=== PATIENT | female | born 1990 | race Caucasian/White ===

== ENCOUNTER → 2020-04-19 10:09 | Outpatient (CLI) | payer OTHER, SELFPAY | PROVIDERS: PCP Internal Medicine; Referring Provider Internal Medicine Geriatric Medicine; Visit Provider Internal Medicine Geriatric Medicine | DX: Z11.59 Encounter for screening for other viral diseases (principal) | CPT/HCPCS: 87635; G2023; U0003 ==

== ENCOUNTER → 2020-10-26 13:43 | Outpatient (CLI) | payer OTHER, SELFPAY ==
[2016-10-24 10:03] VITALS: BMI 34.7
[2020-10-28 20:38] LABS: HPV Reflexed? NOT INDICATED
== END ==
PROVIDERS: PCP Internal Medicine; Visit Provider Obstetrics & Gynecology
DX: Z12.4 Encounter for screening for malignant neoplasm of cervix (principal)
CPT/HCPCS: 88175; G0145

== ENCOUNTER 2022-01-29 09:53 | Emergency (ER) | payer OTHER, SELFPAY ==
[2022-01-29 09:55] VITALS: BP 162/106; PULSE 87; RESP 17; TEMP 36.7; O2SAT 99; BMI 33.6
--- NOTE | 2022-01-29 10:01 | NURSING ---
NO OLD EKGS
[2022-01-29 10:11] VITALS: BP 159/99; PULSE 102; RESP 16
--- NOTE | 2022-01-29 10:19 | EDS_ITS ---
HPI History of Present Illness Chief Complaint: Chest Pain Informant: patient Narrative Narrative: 31-year-old female is brought to the emergency department the chief complaint of hypertension and chest discomfort. Patient states that since October when she had COVID she has had elevated blood pressure readings. She states that she has been monitoring them. She states that last night while at work she had systolic readings of 180 with diastolic around 100. She also noted some pressure in the chest. She states that when her blood pressures get elevated she gets the pressure. She made an appointment with her primary care provider this morning who recommended she come to emergency. In the office she had an EKG that showed sinus rhythm with a possible incomplete right bundle. Patient states no prescriptions were called in for her yet. She has no known renal problems. She is a non-smoker. She drinks about 2 cups of coffee a day. She reports a familial history of hypertension on both her paternal and maternal side. [facility] Medical History delivery delivered Cholecystectomy planned Home Medications amlodipine 2.5 mg PO DAILY #30 tab 01/29/22 [Rx Last Taken Unknown] Allergy/AdvReac Type Severity Reaction Status Date / Time vancomycin Allergy Itching Verified 01/29/22 09:54 Surgical History H/O hernia repair Social History (Updated 01/29/22 @ 10:[address] Erik Guerra DO) Smoking Status: Never smoker substance use type: does not use ROS ROS ED Constitutional Constitutional ED: Denies chills, fever(s) or weight loss Eyes Eyes: Denies change in vision or diplopia ENT ENT ED: Denies ear pain, rhinorrhea or sore throat Cardiovascular Cardiovascular: Reports chest pain; Denies orthopnea, palpitations or racing heartbeat Respiratory/Chest Respiratory/Chest: Denies cough, dyspnea or orthopnea Gastrointestinal Gastrointestinal: Denies abdominal pain, diarrhea, nausea or vomiting Genitourinary Genitourinary ED: Denies dysuria, hematuria or urinary frequency Musculoskeletal Musculoskeletal: Denies arthralgias or myalgias Integumentary Denies abscess or rash Neurologic Neurologic: Denies headache(s) or weakness Psychiatric Psychiatric: Denies anxiety, depression, suicidal ideation or suicidal thoughts Endocrine Endocrinology: Denies polydipsia, polyphagia or polyuria Allergic/Immunologic Allergic/Immunologic ED: Denies mouth swelling, tongue swelling or urticaria EXAM Physical Exam Const Vital Signs: 01/29/22 09:55 01/29/22 10:11 01/29/22 11:59 Temperature 98.1 F Temperature Source Temporal Pulse Rate 87 102 H 76 Respiratory Rate 17 16 16 Blood Pressure 162/106 H 159/99 H 127/94 H Blood Pressure Mean 124 119 105 Pulse Ox 99 100 Oxygen Delivery Method Room Air Room Air Positive well nourished and well developed General Appearance ED: well developed HEENT Reports normocephalic, head/scalp atraumatic, TM's clear and moist mucous membranes Negative for trauma Tympanic Membrane ED: Yes TM's clear Eyes PERRL and EOMs intact bilaterally Neck no lymphadenopathy, supple and no JVD Resp normal respiratory effort and clear to auscultation bilaterally Cardio regular rate, regular rhythm and no murmurs GI normal to inspection, nondistended, normoactive bowel sounds and non-tender Palpation: soft Back/Spine no CVA tenderness and normal ROM Extremity normal to inspection General Extremety ED: Negative for edema General Extremity: Negative for edema Neuro oriented x3 and CN's II-XII intact bilaterally Sensorium / Orientation: alert Motor Exam: strength 5/5 throughout Psych mental status grossly normal Mood & Affect: Negative for depressed or tearful Skin no rashes or lesions noted and no wounds MDM MDM MDM Narrative Medical decision making narrative: Basic blood work was obtained. This revealed a normal creatinine. Troponin was normal and D-dimer normal. My interpretation of the chest x-ray is no acute process. Case was discussed with her primary care provider and we will start her on low dose amlodipine. Lab Data Attestation: I reviewed the patient's lab results. Labs: Laboratory Results - last 24 hr 01/29/22 01/29/22 01/29/22 10:37 10:37 10:37 WBC 5.8 RBC 4.52 Hgb 13.9 Hct 41.2 MCV 91.2 MCH 30.8 MCHC 33.7 RDW Std Deviation 40.5 RDW Coeff of Chris 12.2 Plt Count 251 MPV 10.0 Immature Gran % (Auto) 0.200 Neut % (Auto) 53.1 Lymph % (Auto) 34.6 Montgomery % (Auto) 8.9 Eos % (Auto) 2.7 Baso % (Auto) 0.5 Absolute Neuts (auto) 3.1 Absolute Lymphs (auto) 2.02 Nucleated RBC % 0 D-Dimer Quant (PE/DVT) Cancelled Sodium 135 L Potassium 4.9 Chloride 109 H Carbon Dioxide 21.0 Anion Gap 5 BUN 10 Creatinine 0.83 Estim Creat Clear Calc 77.67 Est GFR (MDRD) Af Amer 103 Est GFR (MDRD) Non-Af 85 BUN/Creatinine Ratio 12.1 Glucose 121 H Calcium 8.9 Troponin I High Sens 01/29/22 01/29/22 10:37 11:00 WBC RBC Hgb Hct MCV MCH MCHC RDW Std Deviation RDW Coeff of Chris Plt Count MPV Immature Gran % (Auto) Neut % (Auto) Lymph % (Auto) Montgomery % (Auto) Eos % (Auto) Baso % (Auto) Absolute Neuts (auto) Absolute Lymphs (auto) Nucleated RBC % D-Dimer Quant (PE/DVT) 0.30 Sodium Potassium Chloride Carbon Dioxide Anion Gap BUN Creatinine Estim Creat Clear Calc Est GFR (MDRD) Af Amer Est GFR (MDRD) Non-Af BUN/Creatinine Ratio Glucose Calcium Troponin I High Sens < 3 L Radiography Diagnostic Testing: Clinical Impression(s) from Imaging Studies Chest X-Ray 01/29/22 10:50 IMPRESSION: Normal x-ray examination of the chest. Electronically Signed: Larry Busby MD ([place]) at 11:00 EDT Reading Location ID and State: [address] [place] [address] , Service support , EKG Initial EKG: Attestation: I personally reviewed and interpreted this EKG as follows: Comments: Normal sinus rhythm ventricular rate of 85 bpm Discharge Plan Triage Chief Complaint: Chest Pain ED Provider: Erik Guerra Dx/Rx/DC Orders Clinical Impression: Hypertension, Chest pain Instructions: ED Hypertension New Begin Treatment Prescriptions: New amlodipine 2.5 mg tablet 2.5 mg PO DAILY Qty: 30 RF: 0 Primary Care Provider: Milla Godinez Referrals: Milla Godinez MD [Primary Care Provider] - 1-2 Weeks Activity Restrictions/Additional Instructions: Please record your blood pressures 1 or 2 times per day as well as the arm you used and the time. Take these readings to your doctor. Disposition Disposition: Home, Self Care
--- NOTE | 2022-01-29 10:19 | EKG12_ITS ---
Test Reason : CP Blood Pressure : / mmHG Vent. Rate : 085 BPM Atrial Rate : 085 BPM P-R Int : 136 ms QRS Dur : 110 ms QT Int : 372 ms P-R-T Axes : 054 048 035 degrees QTc Int : 442 ms Normal sinus rhythm Incomplete right bundle branch block Confirmed by LYDIA BULLOCK, DOUG ([id number]), pictures editor JHON LOZADA ([id number]) on 01/30/2022 8:27:45 AM Referred By: MARISOL Confirmed By:DOUG FREEMAN MD
[2022-01-29 10:47] LABS: Absolute Lymphocyte Count 2.02 X10^3/uL (0.83-4.51); Absolute Neutrophil Count 3.1 X10^3/uL (2.0-7.7); Basophil# 0.03 X10^3/uL; Basophil% 0.5 % (0-1); Eosinophil# 0.16 X10^3/uL; Eosinophils% 2.7 % (0-5); Hematocrit 41.2 % (37-47); Hemoglobin 13.9 g/dL (12.0-15.0); Lymphocyte # 2.02 X10^3/ul (0.83-4.51); Lymphocyte % 34.6 % (19-41); Mean Corp Hgb Conc 33.7 g/dL (32-36); Mean Corpuscular Hgb 30.8 pg (27.0-32.0); Mean Corpuscular Volume 91.2 fL (81-99); Monocyte# 0.52 X10^3/uL; Monocyte% 8.9 % (0-10); NRBC Flagged by Analyzer 0 % (0-5); Neutrophil % 53.1 % (47-70); POSITIVE COUNT YES; Platelet Count 251 K/mm3 (150-450); RBC Distribution Width CV 12.2 % (11.6-14.6); RBC Distribution Width SD 40.5 fl (35.1-43.9); Red Blood Count 4.52 M/mm3 (4.2-5.4); White Blood Count 5.8 K/mm3 (4.4-11.0)
--- NOTE | 2022-01-29 10:50 | RAD_ITS ---
STUDY: X-RAY CHEST REASON FOR EXAM: Female, 31 years old. chest pain TECHNIQUE: AP COMPARISON: None. FINDINGS: EKG leads project over the chest. The lungs are clear and expanded. There is no demonstrated pleural abnormality. Normal size heart. Normal mediastinum and tino. Normal visualized pulmonary arteries. Normal visualized aortic arch and descending thoracic aorta. Normal visualized thoracic spine. Normal visualized ribs, clavicles, and shoulders. There is no demonstrated abnormality of the visualized soft tissue structures of the upper abdomen. RAD/Chest 1 View (Portable) IMPRESSION: Normal x-ray examination of the chest. Electronically Signed: Larry Busby MD ([place]) at 11:00 EDT ,
[2022-01-29 11:00] LABS: Anion Gap 5 (5-15); BUN 10 mg/dL (7-18); BUN/Creat Ratio 12.1 RATIO (10-20); Calcium,Total 8.9 mg/dL (8.5-10.1); Chloride 109 mmol/L (98-107); Creatinine, Serum 0.83 mg/dL (0.55-1.02); EST Glomerular Filtration Rate 85 mL/min (>60); Est Glom Filt Rate - Afr Amer 103 mL/min (>60); Estimated Creatinine Clearance 77.67 ml/min; Glucose 121 mg/dL (74-106); Potassium 4.9 mmol/L (3.5-5.1); Sodium Level 135 mmol/L (136-145)
[2022-01-29 11:07] LABS: Troponin-I HS (w/2H Reflex) < 3 pg/mL (3.0-54.0)
[2022-01-29 11:59] VITALS: BP 127/94; PULSE 76; RESP 16; O2SAT 100
[2022-01-29 12:19] VITALS: BP 127/94; PULSE 79; RESP 17
[2022-01-29 12:42] LABS: Reflex Troponin-HS? (from REC) Y
== END 2022-01-29 12:25 | disposition home or self-care (01) ==
PROVIDERS: Emergency Provider Emergency Medicine; PCP Internal Medicine; Visit Provider Emergency Medicine
DX: I10 Essential (primary) hypertension (principal); R07.9 Chest pain, unspecified; Z86.16 Personal history of COVID-19
CPT/HCPCS: 71045; 80048; 84484; 85025; 85379; 93005; 99284; A4216